=== PATIENT | female | born 1955 | race Caucasian/White ===

== ENCOUNTER 2020-01-12 10:50 | Emergency (ER) | payer MEDICARE, OTHER, SELFPAY ==
[2020-01-12 10:51] VITALS: BP 140/73; PULSE 91; RESP 16; TEMP 36.3; O2SAT 100; BMI 22.9
--- NOTE | 2020-01-12 11:13 | CT_ITS ---
STUDY: CT BRAIN WITHOUT CONTRAST REASON FOR EXAM: Female, 64 years old. Left hand and foot paresthesias RADIATION DOSAGE (If Supplied By Facility): CTDIvol = ( 44.99 ) mGy, DLP = ( 745.49 ) mGycm TECHNIQUE: Transaxial CT imaging of the brain was performed without administration of intravenous contrast material. Individualized dose optimization techniques were used for this CT. COMPARISON: No relevant priors. FINDINGS: Normal soft tissue structures. Normal calvarium. Normal size ventricles and extra-axial spaces for the patient''s age. Normal white matter tracts of the cerebral hemispheres. Normal basal ganglia and thalami. Normal brainstem. Normal cerebellum. There is no intracranial hemorrhage. There are no findings of an acute ischemic infarction. Normal visualized paranasal sinuses. CT/Brain/Head without Contrast IMPRESSION: Chronic involutional changes of the brain. No acute hemorrhage Electronically Signed: Jerry Shaw MD at 12:03 EDT , Service support ,
--- NOTE | 2020-01-12 11:25 | EKG12_ITS ---
Test Reason : NUMBNESS Blood Pressure : / mmHG Vent. Rate : 070 BPM Atrial Rate : 070 BPM P-R Int : 132 ms QRS Dur : 074 ms QT Int : 400 ms P-R-T Axes : 063 022 035 degrees QTc Int : 432 ms Normal sinus rhythm with sinus arrhythmia Normal ECG Confirmed by INGRID CM, BERTA ([id number]), proposal editor MACKENZIE WIGGINS ([id number]) on 01/14/2020 9:07:55 AM Referred By: VALERIE Confirmed By:BERTA QUINTERO MD
--- NOTE | 2020-01-12 11:26 | ED.VISSUMM ---
- ER Visit Summary Date of Service: 01/12/20 Chief Complaint: Numbness toes on the left History of Present Illness: The patient is a [address] Venu Valenzuela iii. She reports that she has numbness in her left second, third, and fourth toe that is been present for the past 2 days. States that these are intermittent episodes last hours at a time. She denies any pain with this. She has never had anything like this before. 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 However, she is not training for a race at this time. She does not have any issues. Patient reports that last week she had paresthesias in her left hand that lasted hours. Does have completely resolved. She denies any other neurologic symptoms. No headache, weakness, vertigo, or difficulty speaking. Patient reports that she had more cramps in her calves and feet bilaterally last week than she typically has. She has not had any this week. She denies any other complaints. Physical Examination: Vitals: Stable. Afebrile. General: Well-nourished and well-developed. Head: Normocephalic atraumatic. Neck: Supple, no lymphadenopathy. No JVD. Nontender. Cardiovascular: Regular rate and rhythm. No murmurs. Respiratory: No respiratory distress. Clear to auscultation bilaterally. Abdominal: Soft, nontender, nondistended, normal bowel sounds. No guarding, rebound, or peritoneal signs. Back: Nontender. Extremities: Nontender, no edema. 2+ dorsalis pedis pulse bilaterally. Skin: Normal color, no rash. Neurologic: Alert and oriented ?3. Cranial nerves II through XII are intact. Normal strength and sensation except paresthesias in her left second, third, and fourth toes. Psych: Normal affect. Test Results: CBC shows segmented neutrophils of 74. Chem-7 shows a glucose of 112. Clinical Impression(s) from Imaging Studies Brain CT 01/12/20 11:13 IMPRESSION: Chronic involutional changes of the brain. No acute hemorrhage Electronically Signed: Jerry Shaw MD at 12:03 EDT , Service support , Emergency Department Course and Treatment: Patient had screening blood work obtained. She is resting comfortably. Treatment Plan: Patient reports that she is seen a preparation operator previously. She is instructed to follow-up them within a week for another exam. She also instructed follow-up with Dr. Venu Valenzuela within a week for further evaluation and treatment. Return to the emergency department for any worsening symptoms. Disposition: To home in improved and stable condition. Impression: 1. Paresthesias left second, third, and fourth toes. This note was generated with [employer] dictation software. It may contain incorrect words, spelling, and punctuation that were not noted in review of the chart prior to signing ED Disposition - Plan for ED Patient: Instructions: ED Paraesthesias Referrals: Venu Valenzuela III, MD [Primary Care Provider] - 1 Week
[2020-01-12] MEDS: 0.9% Normal Saline 1,000 ML 150 ML IV (11:29)
[2020-01-12 11:33] LABS: Absolute Lymphocyte Count 1.81 X10^3/uL (0.83-4.51); Absolute Neutrophil Count 6.9 X10^3/uL (2.0-7.7); Basophil# 0.04 X10^3/uL; Basophil% 0.4 % (0-1); Eosinophil# 0.03 X10^3/uL; Eosinophils% 0.3 % (0-5); Hematocrit 43.8 % (37-47); Lymphocyte # 1.81 X10^3/ul (4.0); Lymphocyte % 19.3 % (19-41); Mean Corp Hgb Conc 34.2 g/dL (32-36); Mean Corpuscular Hgb 32.9 pg (27.0-32.0); Mean Corpuscular Volume 96.1 fL (81-99); Mean Platelet Vol. 10.5 fl (6.2-12.0); Monocyte# 0.56 X10^3/uL; NRBC Flagged by Analyzer 0 % (0-5); Neutrophil # 6.93 X10^3/uL (2.7-7.7); Neutrophil % 73.7 % (47-70); Platelet Count 234 K/mm3 (150-450); RBC Distribution Width CV 12.7 % (11.6-14.6); RBC Distribution Width SD 43.8 fl (35.1-43.9); Red Blood Count 4.56 M/mm3 (4.2-5.4); White Blood Count 9.4 K/mm3 (4.4-11.0)
[2020-01-12 11:55] LABS: Anion Gap 5 (5-15); BUN 12 mg/dL (7-18); BUN/Creat Ratio 15.4 RATIO (10-20); Calcium,Total 9.3 mg/dL (8.5-10.1); Chloride 105 mmol/L (98-107); Creatinine, Serum 0.78 mg/dL (0.55-1.02); EST Glomerular Filtration Rate 79 mL/min (>60); Est Glom Filt Rate - Afr Amer 95 mL/min (>60); Glucose 112 mg/dL (74-106); Potassium 3.7 mmol/L (3.5-5.1); Sodium Level 140 mmol/L (136-145)
[2020-01-12 12:36] VITALS: BP 134/69; PULSE 62; RESP 15; O2SAT 98
== END 2020-01-12 12:39 | disposition home or self-care (01) ==
LOC: ED 12:09
PROVIDERS: Emergency Provider Emergency Medicine; PCP Family Medicine
DX: R20.2 Paresthesia of skin (principal)
CPT/HCPCS: 70450; 80048; 85025; 93005; 96360; 99284; J7030

== ENCOUNTER 2022-12-28 20:53 | Emergency (ER) | payer MEDICARE, OTHER, SELFPAY ==
[2022-12-28 20:55] VITALS: BP 139/86; PULSE 86; RESP 16; TEMP 36.9; O2SAT 99; BMI 25.2
--- NOTE | 2022-12-28 21:05 | RAD_ITS ---
STUDY: X-RAY - LEFT WRIST REASON FOR EXAM: Female, 67 years old. INJURY TECHNIQUE: 3 view(s) of the wrist were obtained. COMPARISON: None. FINDINGS: Subtle acute nondisplaced oblique fracture of the distal metaphysis of the radius. Normal radiocarpal articulation. Normal distal radioulnar articulation. Normal carpal bones. Normal carpal articulations. Normal carpometacarpal articulation of the thumb. Normal second through fifth carpometacarpal articulations. Normal visualized metacarpal bones. The soft tissue structures are unremarkable. RAD/Wrist min 3 Views IMPRESSION: Subtle acute nondisplaced oblique fracture distal metaphysis of the radius. Electronically Signed: Bertin Ordonez MD at 21:30 EDT ,
--- NOTE | 2022-12-28 21:53 | EX.ED.UPPERE ---
HPI History of Present Illness Chief Complaint: Upper Extremity Injury Narrative Narrative: 67-year-old female, [id number], presents with injury to her left wrist after falling while playing tennis. She states that they were on their last point she ran backwards towards the ball, and fell. She fell onto her buttocks and onto her left wrist. She denies hitting her head or loss of consciousness, or other injury but states she has pain in her left wrist when she moves her left hand. She has been icing it. She presents for evaluation of the injury to her left wrist. [facility] Medical History Wrist injury Home Medications NK 01/12/20 [History Last Taken Unknown] Allergy/AdvReac Type Severity Reaction Status Date / Time No Known Allergies Allergy Verified 12/28/22 20:58 Social History Smoking Status: Never smoker ROS ROS ED ROS Narrative Constitutional: No fever, no chills. HEENT: No sore throat. No neck pain. No loss of vision. No rhinorrhea. Cardiovascular: No chest pain. No palpitations. No pedal edema. Respiratory: No cough, no shortness of breath. Abdominal: No abdominal pain. No nausea. No vomiting. Genitourinary: No dysuria. No hematuria. Musculoskeletal: No myalgias. Left wrist pain, worse with movement. Neurologic: No headaches. No dizziness. No lightheadedness. Skin: No rash. No change in color. Psychiatric: No depression. No anxiety. EXAM Physical Exam Narrative Exam Narrative: Afebrile. Vital signs noted. HEENT: Normocephalic. Atraumatic. PERRL, EOMI. Neck soft and supple. No point tenderness or step off. Cardiovascular: Regular rate and rhythm. No murmurs, rubs, or gallops appreciated. Respiratory: No tachypnea. Lungs clear to auscultation bilaterally. Gastrointestinal: Abdomen soft, nontender, with normoactive bowel sounds. No rebound or guarding. Neurological: Awake. Alert. Nonfocal, nonlateralizing. Skin: No rash. Normal color. No pallor. Musculoskeletal: No pedal edema. Limited range of motion of left wrist. Mild tenderness to palpation distal radius. Palpable radial pulse. Neurovascular intact distally with good capillary refill. Able to oppose thumb. Able to abduct and adduct fingers. Const Vital Signs: 12/28/22 20:55 Temperature 98.5 F Temperature Source Temporal Pulse Rate 86 Respiratory Rate 16 Blood Pressure 139/86 H Blood Pressure Mean 103 Pulse Ox 99 Oxygen Delivery Method Room Air MDM MDM MDM Narrative Medical decision making narrative: Patient will be given Tylenol for analgesia as she initially declined anything and states that she really does not like to take medication. RN protocol ordered x-ray was reviewed and interpreted by myself in the left wrist x-ray does show a nondisplaced oblique fracture of the distal metaphysis of the radius. I reviewed the radiology report which confirms my independent interpretation. Her rings will be removed, but she does not want us to cut the alexey ring on her left ring finger. Patient was able to remove the rings on her left ring finger by herself with a small amount of lubrication. Ortho-Glass AP splint was applied. She remained neurovascular in tact distally with good capillary refill and good finger mobility afterwards/after splint application. She will be given us a sling to use for comfort. She will continue ice and elevation at home. She declined any narcotic pain medication at this time stating she would prefer to take [id number] medications for analgesia. She will follow-up with orthopedics in 5 to 7 days and she was referred to the on-call physician, Dr. Ross Goss. Return instructions to the emergency department were reviewed. Disposition is discharged home in stable condition. Radiography Diagnostic Testing: Clinical Impression(s) from Imaging Studies Wrist X-Ray 12/28/22 21:05 IMPRESSION: Subtle acute nondisplaced oblique fracture distal metaphysis of the radius. Electronically Signed: Bertin Ordonez MD at 21:30 EDT , Procedures Upper Extremity Splints Upper Extremity Splint: Orthoglass and Volar (AP splint) Splint Fabrication: Fabricated Location: Left Discharge Plan Triage Chief Complaint: Upper Extremity Injury ED Provider: Venancio Bishop Dx/Rx/DC Orders Clinical Impression: Distal radius fracture, left, Fall Instructions: ED Fracture, Upper Extremity Prescriptions: No Action NK Stand Alone Forms: Own the [employer] Primary Care Provider: Natalio Vaughan Referrals: Natalio Vaughan MD [Primary Care Provider] - Ross Goss DO [Med Staff - Active Staff] - 5-7 Days Activity Restrictions/Additional Instructions: Keep left arm splint clean and dry. Follow-up with orthopedics within the next 5 to 7 days. Tylenol or ibuprofen as needed for pain. Disposition Disposition: Home, Self Care
[2022-12-28] MEDS: Acetaminophen 500 MG Tablet 1000 MG PO (21:56)
== END 2022-12-28 22:34 | disposition home or self-care (01) ==
PROVIDERS: Emergency Provider Emergency Medicine; PCP Family Medicine; Visit Provider Emergency Medicine
DX: S52.335A Nondisplaced oblique fracture of shaft of left radius, initial encounter for closed fracture (principal); Y93.73 Activity, racquet and hand sports; W19.XXXA Unspecified fall, initial encounter
CPT/HCPCS: 29125; 73110; 99284